=== PATIENT | female | born 1985 | race Caucasian/White ===

== ENCOUNTER 2019-06-06 15:12 | Emergency (ER) | payer OTHER ==
[2019-06-06 15:28] VITALS: TEMP 97.8; BMI 27.4
[2019-06-06 15:46] LABS: PH,URINE 7.5 (5.0-8.0); URINE APPEARANCE CLEAR; URINE BILIRUBIN NEGATIVE (NEGATIVE); URINE COLOR YELLOW; URINE GLUCOSE (UA) NEGATIVE (NEGATIVE); URINE KETONE 3+ (NEGATIVE); URINE LEUK ESTERASE NEGATIVE (NEGATIVE); URINE NITRITE NEGATIVE (NEGATIVE); URINE PROTEIN TRACE (NEGATIVE); URINE UROBILINOGEN 0.2 mg/dL (0.2-1.0)
[2019-06-06 16:18] LABS: COCAINE, UR NEGATIVE ng/ml (CUTOFF=300); METHADONE, UR NEGATIVE ng/ml (CUTOFF=300); OPIATES, URI NEGATIVE ng/ml (CUTOFF=300); PHENCYCLIDINE,URINE NEGATIVE ng/ml (CUTOFF=25); URINE AMPHETAMINES NEGATIVE ng/ml (CUTOFF=500); URINE BARBITURATES NEGATIVE ng/ml (CUTOFF=200); URINE BENZODIAZEPINES NEGATIVE ng/ml (CUTOFF=200)
--- NOTE | 2019-06-06 16:22 | PDOC ---
History of Present Illness - General Chief Complaint: Pain, Acute Stated Complaint: INTOXICATED Time Seen by Provider: 06/06/19 16:21 History Source: Patient Exam Limitations: No Limitations - History of Present Illness Initial Comments: 06/06/19 16:44 33yF w PMHx opioid/alcohol abuse, pancreatitis, gallstones, ovarian cyst presenting w nausea/vomiting, diarrhea, moderate epigastric and RUQ pain after drinking indeterminate amount of alcohol last night after abstaining for past few months. Denies fever, chest pain, SOB, cough, urinary changes. Past History - Past Medical History Allergies/Adverse Reactions: Allergies Allergy/AdvReac Type Severity Reaction Status Date / Time shellfish derived Allergy Intermediate Hives Verified 06/06/19 15:24 No Known Drug Allergies Allergy Verified 06/06/19 15:24 Home Medications: Ambulatory Orders Folic Acid - 1 mg PO DAILY 03/19/19 Escitalopram Oxalate [Lexapro -] 10 mg PO DAILY #16 tablet 04/09/19 traZODone HCL [Trazodone HCl] 50 mg PO HS #16 tablet 04/09/19 Cetirizine HCl [Zyrtec -] 10 mg PO HS #8 tablet 04/10/19 Levothyroxine [Synthroid -] 100 mcg PO DAILY #8 tablet 04/10/19 Loratadine 10 mg PO DAILY #8 tab.rapdis 04/10/19 Naltrexone Microspheres [Vivitrol] 380 mg IM MONTHLY #1 disp.syrin 05/07/19 Acamprosate Calcium [Campral -] 666 mg PO TID 06/06/19 Ondansetron [Zofran *Odt*] 4 mg SL TID #6 od.tablet 06/06/19 Anemia: No Asthma: No Cancer: Yes (pre ca of cervix, conization surgery ) Cardiac Disorders: No CVA: No COPD: No CHF: No Dementia: No Diabetes: No GI Disorders: No Disorders: No HTN: No Hypercholesterolemia: No Kidney Stones: No Liver Disease: Yes (elevated enzymes in past due to alcohol) Psychiatric Problems: Yes Seizures: No Thyroid Disease: Yes (on medication) - Surgical History Abdominal Surgery: No Appendectomy: No Cardiac Surgery: No Cholecystectomy: No Lung Surgery: No Neurologic Surgery: No Orthopedic Surgery: No - Psycho Social/Smoking Cessation Hx Smoking History: Former smoker Have you smoked in the past 12 months: No Number of Cigarettes Smoked Daily: 2 Information on smoking cessation initiated: No 'Breaking Loose' booklet given: 09/10/14 Hx Alcohol Use: Yes Drug/Substance Use Hx: No Substance Use Type: Alcohol Hx Substance Use Treatment: Yes (detox, outpatient rehab) Review of Systems - Review of Systems Constitutional: No: Chills, Fever HEENTM: No: Eye Pain, Ear Discharge Respiratory: No: Cough, Shortness of Breath Cardiac (ROS): No: Chest Pain, Palpitations, Syncope ABD/GI: Yes: Diarrhea, Nausea, Vomiting. No: Abdominal Distended, Constipated : No: Burning, Dysuria Musculoskeletal: No: Back Pain, Joint Pain Integumentary: No: Bruising, Erythema Neurological: No: Headache, Seizure Psychiatric: Yes: Anxiety, Stressors. No: Depression Endocrine: No: Intolerance to Cold, Intolerance to Heat Hematologic/Lymphatic: No: Anemia, Blood Clots *Physical Exam - Vital Signs Last Vital Signs Temp Pulse Resp BP Pulse Ox 97.8 F 65 22 H 144/87 96 06/06/19 15:24 06/06/19 15:24 06/06/19 15:24 06/06/19 15:24 06/06/19 15:24 - Physical Exam General Appearance: Yes: Nourished, Appropriately Dressed, Moderate Distress HEENT: positive: EOMI, ERVIN, Normal Voice, Hearing Grossly Normal. negative: Scleral Icterus (R), Scleral Icterus (L) Respiratory/Chest: positive: Lungs Clear, Normal Breath Sounds. negative: Chest Tender, Respiratory Distress Cardiovascular: positive: Regular Rhythm, Regular Rate, S1, S2. negative: Edema , Murmur Gastrointestinal/Abdominal: positive: Normal Bowel Sounds, Tender (mild epigastric/RUQ), Flat, Soft. negative: Organomegaly Extremity: positive: Delayed Capillary Refill Integumentary: positive: Normal Color, Dry Neurologic: positive: spring up supervisor II-XII NML intact, Fully Oriented, Alert, Normal Mood/ Affect (anxious, pacing around, asking for pain meds), Normal Response, Responsive. negative: Numbness, Confused, Disoriented ED Treatment Course - LABORATORY CBC & Chemistry Diagram: 06/06/19 17:30 06/06/19 17:30 - ADDITIONAL ORDERS Additional order review: Laboratory Results 06/06/19 06/06/1906/06/20 15:25 15:25 15:25 Urine Color Yellow Urine Appearance Clear Urine pH 7.5 Ur Specific [place] 1.021 Urine Protein Trace Urine Glucose (UA) Negative Urine Ketones 3+ H Urine Blood Negative Urine Nitrite Negative Urine Bilirubin Negative Urine Urobilinogen 0.2 Ur Leukocyte Esterase Negative Urine HCG, Qual Negative Opiates Screen Negative Methadone Screen Negative Barbiturate Screen Negative Phencyclidine Screen Negative Ur Amphetamines Screen Negative MDMA (Ecstasy) Screen Negative Benzodiazepines Screen Negative Cocaine Screen Negative U Marijuana (THC) Screen Negative Medical Decision Making - Medical Decision Making 06/06/19 16:43 CT A/P - no acute pathology EKG sinus bradycardia, TWI V1-2, HR 49, QTc 428, no ST changes WBC 15 w L shift, lactate 4.4 --- 33yF w PMHx alcohol/opioid abuse, pancreatitis, gallstones, ovarian cyst presenting w 1d nausea/vomiting, diarrhea, moderate epigastric pain after drinking alcohol d/t alcoholic gastritis Low concern for UTI (clean) vs (neg) vs ACS (no cardiac risk factors) vs illicit drug use (neg) vs pancreatitis (low lipase) vs cholecystitis (normal bili, not jaundice). Given zofran, 2L NS, tylenol, pepcid, 2 morphine DC home w zofran Discharge - Discharge Information Problems reviewed: Yes Clinical Impression/Diagnosis: Alcoholic gastritis Qualifiers: Chronicity: acute Gastritis bleeding: without bleeding Qualified Code(s): K29.20 - Alcoholic gastritis without bleeding Condition: Improved Disposition: HOME - Additional Discharge Information Prescriptions: Ondansetron [Zofran *Odt*] 4 mg SL TID #6 od.tablet - Follow up/Referral - Patient Discharge Instructions Patient Printed Discharge Instructions: DI for Alcoholic Gastritis Additional Instructions: Take the prescribed zofran if you're vomiting. Dont drink alcohol. Drink lots of water Follow up with your primary care doctor - Post Discharge Activity
[2019-06-06] MEDS ORDERED: FAMOTIDINE 20 MG/50 ML IVPB 20 MG/50 ML MG IVPB ONE ×2 (16:42→17:44)
[2019-06-06] MEDS ORDERED: SODIUM CHLORIDE 0.9% 500 ML INFUS.BAG IV ONE ×3 (16:42→19:54)
[2019-06-06] MEDS ORDERED: ONDANSETRON 4 MG/2 ML VIAL IVPUSH ONE (16:42)
[2019-06-06] MEDS ORDERED: ACETAMINOPHEN 1000 MG/100 ML VIAL (NON FORMULARY) IVPB ONE (17:15)
[2019-06-06] MEDS ORDERED: ONDANSETRON 4 MG/2 ML VIAL ONE (17:44)
[2019-06-06] MEDS ORDERED: ACETAMINOPHEN INJECTION 100 ML IVPB ONE (17:50)
[2019-06-06 18:10] LABS: BASO % 0.3 % (0-2.0); HEMATOCRIT 41.8 % (32.4-45.2); HEMOGLOBIN 13.7 GM/dL (10.7-15.3); LYMPH % 9.9 % (8-40); MCH 27.5 pg (25.7-33.7); MCHC 32.6 g/dl (32.0-36.0); MEAN CELL VOLUME 84.3 fl (80-96); MEAN PLT VOLUME 9.5 fl (7.5-11.1); MONO % 2.2 % (3.8-10.2); NEUT % 87.6 % (42.8-82.8); PLATELET COUNT 385 K/MM3 (134-434); RBC 4.96 M/mm3 (3.60-5.2); RDW 13.2 % (11.6-15.6); WHITE BLOOD COUNT 15.7 K/mm3 (4.0-10.0)
--- NOTE | 2019-06-06 18:21 | PDOC ---
Documentation entered by Jeronimo Fletcher SCRIBE, acting as scribe for Amira Jensen MD. Amira Jensen MD: This documentation has been prepared by the Justine arguello Nirvannie, SCRIBE, under my direction and personally reviewed by me in its entirety. I confirm that the documentation accurately reflects all work, treatment, procedures, and medical decision making performed by me. Attending Attestation - Resident Resident Name: EmilyValeriano - ED Attending Attestation I have performed the following: I have examined & evaluated the patient, The case was reviewed & discussed with the resident, I agree w/resident's findings & plan, Exceptions are as noted - HPI HPI: 06/06/19 17:01 The patient is a 33 year old female, with a significant past medical history of pancreatitis, gallstones, ovarian cysts, alcohol abuse, who presents to the emergency department with nausea, vomiting, diarrheam and epigastric abdominal pain. Patient notes to have abstained from alcohol for a "few months" and last night he had his first drink last night. Allergies: Shellfish - Physicial Exam PE: 06/06/19 17:59 Agree with resident exam. patient is alert and oriented x 3 and in no acute distress. Abdomen is soft, non distended without guarding or rebound. + tenderness in the RUQ and epigastrium. - Medical Decision Making 06/06/19 18:17 pt presents to the ED complaining of epigastric pain, nausea and vomiting after drinking. History of gallstones and chronic pancreatitis. Differential includes chronic pancreatitis, biliary disease, gastritis, other intraabdominal pathology. U preg is negative. Will check labs and CT abdomen, treat with pepcid and zofran and reassess.
[2019-06-06] MEDS ORDERED: morphine CARPU-JECT 4 MG/1 ML DISP.SYRIN IVPUSH ONE (18:42)
[2019-06-06 19:07] LABS: ALBUMIN 5.2 g/dl (3.4-5.0); BILIRUBIN,TOTAL 0.6 mg/dL (0.2-1); BLOOD UREA NITROGEN 8.4 mg/dL (7-18); CALCIUM 10.1 mg/dL (8.5-10.1); CREATININE 0.8 mg/dL (0.55-1.3); POTASSIUM 4.2 mmol/L (3.5-5.1); TOT PROT 9.1 g/dl (6.4-8.2)
[2019-06-06] MEDS ORDERED: MORPHINE SULFATE 2 MG/ML VIAL ONE (19:09)
--- NOTE | 2019-06-06 19:56 | PDOC ---
*Physical Exam - Vital Signs Last Vital Signs Temp Pulse Resp BP Pulse Ox 97.8 F 65 22 H 144/87 96 06/06/19 15:24 06/06/19 15:24 06/06/19 15:24 06/06/19 15:24 06/06/19 15:24 ED Treatment Course - LABORATORY CBC & Chemistry Diagram: 06/06/19 22:36 06/06/19 17:30 - ADDITIONAL ORDERS Additional order review: Laboratory Results 06/06/19 06/06/19 06/06/19 17:30 17:30 17:30 Sodium 142 Potassium 4.2 Chloride 109 H Carbon Dioxide 16 L Anion Gap 16 BUN 8.4 Creatinine 0.8 Est GFR (CKD-EPI)AfAm 111.48 Est GFR (CKD-EPI)NonAf 96.19 Random Glucose 103 Lactic Acid 4.4 H* Calcium 10.1 Total Bilirubin 0.6 AST 24 ALT 41 Alkaline Phosphatase 51 Total Protein 9.1 H Albumin 5.2 H Lipase 55 L Urine Color Urine Appearance Urine pH Ur Specific [place] Urine Protein Urine Glucose (UA) Urine Ketones Urine Blood Urine Nitrite Urine Bilirubin Urine Urobilinogen Ur Leukocyte Esterase Urine HCG, Qual Opiates Screen Methadone Screen Barbiturate Screen Phencyclidine Screen Ur Amphetamines Screen MDMA (Ecstasy) Screen Benzodiazepines Screen Cocaine Screen U Marijuana (THC) Screen 06/06/19 06/06/19 06/06/19 15:25 15:25 15:25 Sodium Potassium Chloride Carbon Dioxide Anion Gap BUN Creatinine Est GFR (CKD-EPI)AfAm Est GFR (CKD-EPI)NonAf Random Glucose Lactic Acid Calcium Total Bilirubin AST ALT Alkaline Phosphatase Total Protein Albumin Lipase Urine Color Yellow Urine Appearance Clear Urine pH 7.5 Ur Specific [place] 1.021 Urine Protein Trace Urine Glucose (UA) Negative Urine Ketones 3+ H Urine Blood Negative Urine Nitrite Negative Urine Bilirubin Negative Urine Urobilinogen 0.2 Ur Leukocyte Esterase Negative Urine HCG, Qual Negative Opiates Screen Negative Methadone Screen Negative Barbiturate Screen Negative Phencyclidine Screen Negative Ur Amphetamines Screen Negative MDMA (Ecstasy) Screen Negative Benzodiazepines Screen Negative Cocaine Screen Negative U Marijuana (THC) Screen Negative 06/06/19 17:30 RBC 4.96 MCV 84.3 MCHC 32.6 RDW 13.2 D MPV 9.5 Neutrophils % 87.6 H D Lymphocytes % 9.9 D Monocytes % 2.2 L Eosinophils % 0.0 D Basophils % 0.3 - Medications Given in the ED: ED Medications Discontinued Medications Generic Name Dose Route Start Last Admin Trade Name Nicho PRN Reason Stop Dose Admin Acetaminophen 1,000 mg 06/06/19 17:15 06/06/19 17:54 Ofirmev Injection - IVPB 06/06/19 17:16 1,000 mg ONCE ONE Administration Famotidine/Sodium Chloride 20 mg in 50 mls @ 100 mls/hr 06/06/19 16:42 17:54 Pepcid 20 Mg Premixed Ivpb - IVPB 06/06/19 17:11 100 mls/hr ONCE ONE Administration Morphine Sulfate 2 mg 06/06/19 18:42 06/06/19 19:12 Morphine Injection - IVPUSH 06/06/19 18:43 2 mg ONCE ONE Administration Ondansetron HCl 4 mg 06/06/19 16:42 06/06/19 17:54 Zofran Injection IVPUSH 06/06/19 16:43 4 mg NOW ONE Administration Sodium Chloride 1,000 ml 06/06/19 16:42 06/06/19 17:53 Normal Saline - IV 06/06/19 16:43 1,000 ml ONCE ONE Administration Medical Decision Making - Medical Decision Making 06/06/19 19:54 Pt signed out to me. She has elevated lactate and WBC elevation and 3+ ketones in the urine. She will be hydrated and we will repeeat the labs. She received 1L so far. W will hydrate with 2 more Liters and then she may be stable for discharge vs admission to [facility]. 06/06/19 20:01 Pt apparently abuses opiates; normal UTOX; also alcohol use. We will repeat Comp, lactate and alcohol level after a 2nd L and then administer a 3rd L 06/06/19 20:05 06/06/19 22:38 Pt's repeat CBC was cancelled; ot's repeat lactate is pending 06/06/19 22:52 Repeat lactic acid is 1.3 06/06/19 22:56 SHe will likely be discharged home 06/06/19 23:04 CBC improved. Discharge - Discharge Information Problems reviewed: Yes Clinical Impression/Diagnosis: Alcoholic gastritis Qualifiers: Chronicity: acute Gastritis bleeding: without bleeding Qualified Code(s): K29.20 - Alcoholic gastritis without bleeding Condition: Improved Disposition: HOME - Additional Discharge Information Prescriptions: Ondansetron [Zofran *Odt*] 4 mg SL TID #6 od.tablet - Follow up/Referral - Patient Discharge Instructions Patient Printed Discharge Instructions: DI for Alcoholic Gastritis Additional Instructions: Take the prescribed zofran if you're vomiting. Dont drink alcohol. Drink lots of water Follow up with your primary care doctor - Post Discharge Activity
[2019-06-06 22:54] LABS: BASO % 0.6 % (0-2.0); HEMOGLOBIN 11.5 GM/dL (10.7-15.3); LYMPH % 12.1 % (8-40); MCH 27.8 pg (25.7-33.7); MCHC 32.8 g/dl (32.0-36.0); MEAN PLT VOLUME 9.2 fl (7.5-11.1); MONO % 3.6 % (3.8-10.2); NEUT % 83.7 % (42.8-82.8); PLATELET COUNT 291 K/MM3 (134-434); RBC 4.12 M/mm3 (3.60-5.2); WHITE BLOOD COUNT 11.9 K/mm3 (4.0-10.0)
[2019-06-06 23:42] VITALS: BP 135/69; PULSE 86
--- NOTE | 2019-06-07 17:08 | EKG ---
Test Reason : Blood Pressure : / mmHG Vent. Rate : 049 BPM Atrial Rate : 049 BPM P-R Int : 134 ms QRS Dur : 092 ms QT Int : 474 ms P-R-T Axes : 042 081 056 degrees QTc Int : 428 ms SINUS BRADYCARDIA OTHERWISE NORMAL ECG NO PREVIOUS ECGS AVAILABLE Confirmed by MAITE REED MD ([id number]) on 06/07/2019 5:08:10 PM Referred By: Confirmed By:MAITE REED MD
== END 2019-06-06 23:42 | disposition home or self-care (01) ==
LOC: JER 15:12
PROC: 3E033GC Introduction of Other Therapeutic Substance into Peripheral Vein, Percutaneous Approach (ICD-10-PCS; principal; 2019-06-06)
PROC: 3E033GC Introduction of Other Therapeutic Substance into Peripheral Vein, Percutaneous Approach (ICD-10-PCS; 2019-06-06)
PROC: 3E033NZ Introduction of Analgesics, Hypnotics, Sedatives into Peripheral Vein, Percutaneous Approach (ICD-10-PCS; 2019-06-06)
PROC: 3E033NZ Introduction of Analgesics, Hypnotics, Sedatives into Peripheral Vein, Percutaneous Approach (ICD-10-PCS; 2019-06-06)
DX: K29.20 Alcoholic gastritis without bleeding (principal); E03.9 Hypothyroidism, unspecified; Z87.19 Personal history of other diseases of the digestive system
CPT/HCPCS: 36415; 74177-TC; 80053; 80307; 81003; 83605; 83690; 84703; 85025; 93005; 93010; 99285-25; J0131; Q9967

== ENCOUNTER 2021-08-19 12:54 | Inpatient (IN) | payer BC, OTHER ==
[2021-08-19 14:14] VITALS: BMI 29.9
[2021-08-19] MEDS ORDERED: ACETAMINOPHEN 325 MG TABLET (FP) PO PRN (14:54)
[2021-08-19] MEDS ORDERED: WITCH HAZEL 50% (TUCKS) 40 PAD/JAR PAD TP PRN (14:54)
[2021-08-19] MEDS ORDERED: BENZOCAINE 28 GM HEMORRHOIDAL OINTMENT TP PRN (14:54)
[2021-08-19] MEDS ORDERED: oxyCODONE HCL 5 MG TABLET PO PRN (14:54)
[2021-08-19] MEDS ORDERED: BISACODYL 10 MG SUPP.RECT RC PRN (14:54)
[2021-08-19] MEDS ORDERED: METHYLERGONOVINE MALEATE 0.2 MG/1 ML AMP IM PRN (14:54)
[2021-08-19] MEDS ORDERED: BENZOCAINE 20% 57 GM BOTTLE TP PRN (14:54)
[2021-08-19] MEDS ORDERED: AMPICILLIN - 2 GM in SODIUM CHLORIDE 100 ML IVPB ONE (15:00)
[2021-08-19] MEDS ORDERED: OXYTOCIN 20 UNITS in 0.9% NS 20 UNIT/1,000 ML INFUS.BAG IV SCH (15:00)
[2021-08-19] MEDS ORDERED: ONDANSETRON 4 MG/2 ML VIAL ONE (15:18)
[2021-08-19] MEDS ORDERED: OXYTOCIN 20 UNITS in 0.9% NS 20 UNIT/1,000 ML INFUS.BAG IV ONE (15:25)
[2021-08-19] MEDS: IBUPROFEN 600 MG TABLET (FP) PO PRN ×2 (15:30→22:25)
[2021-08-19] MEDS ORDERED: ONDANSETRON 4 MG/2 ML VIAL IVPB PRN (15:30)
[2021-08-19] MEDS ORDERED: IBUPROFEN 600 MG TABLET (FP) PO ONE (15:31)
[2021-08-19 16:42] LABS: HEMATOCRIT 37.6 % (32.4-45.2); HEMOGLOBIN 12.1 GM/dL (10.7-15.3); MCH 26.3 pg (25.7-33.7); MCHC 32.1 g/dl (32.0-36.0); MEAN CELL VOLUME 81.8 fl (80-96); MEAN PLT VOLUME 8.7 fl (7.5-11.1); PLATELET COUNT 329 10^3/uL (134-434); RBC 4.59 M/mm3 (3.60-5.2); RDW 13.5 % (11.6-15.6); WHITE BLOOD COUNT 20.5 K/mm3 (4.0-10.0)
[2021-08-19 16:45] LABS: INR 1.07 (0.83-1.09); PROTHROMBIN TIME (PATIENT) 12.3 SEC (9.7-13.0)
[2021-08-19 16:48] LABS: ACTIVATED PTT 29.5 SECONDS (25.2-36.5)
[2021-08-19 16:56] LABS: CALCIUM 8.7 mg/dL (8.5-10.1)
[2021-08-19 16:57] LABS: BLOOD UREA NITROGEN 5.5 mg/dL (7-18)
[2021-08-19 17:00] LABS: CREATININE 0.5 mg/dL (0.55-1.3)
[2021-08-19 17:29] LABS: ANISOCYTOSIS 1+; MACROCYTOSIS 0; PLATELET ESTIMATE NORMAL; TEAR DROP CELLS 1+
[2021-08-19 18:09] LABS: METHADONE, UR NEGATIVE (NEGATIVE); OPIATES, URI NEGATIVE (NEGATIVE); PHENCYCLIDINE,URINE NEGATIVE (NEGATIVE); URINE BARBITURATES NEGATIVE (NEGATIVE); URINE BENZODIAZEPINES NEGATIVE (NEGATIVE)
[2021-08-19 18:10] LABS: COCAINE, UR NEGATIVE (NEGATIVE)
[2021-08-19 18:15] LABS: URINE AMPHETAMINES NEGATIVE (NEGATIVE)
[2021-08-20] MEDS: IBUPROFEN 600 MG TABLET (FP) PO PRN ×4 (05:47→21:01)
[2021-08-20] MEDS ORDERED: LEVOTHYROXINE NA 100 MCG TABLET (FP) PO SCH (07:00)
[2021-08-20 07:17] LABS: BASO % 0.4 % (0-2.0); EOS % 0.8 % (0-4.5); HEMATOCRIT 32.7 % (32.4-45.2); HEMOGLOBIN 10.9 GM/dL (10.7-15.3); MCH 27.3 pg (25.7-33.7); MCHC 33.3 g/dl (32.0-36.0); MEAN CELL VOLUME 81.7 fl (80-96); MEAN PLT VOLUME 8.5 fl (7.5-11.1); MONO % 7.7 % (3.8-10.2); NEUT % 73.1 % (42.8-82.8); PLATELET COUNT 326 10^3/uL (134-434); RDW 13.3 % (11.6-15.6); WHITE BLOOD COUNT 15.4 K/mm3 (4.0-10.0)
[2021-08-20] MEDS: LORATADINE 10 MG TABLET PO SCH (09:54)
[2021-08-20] MEDS: ESCITALOPRAM OXALATE 10 MG TABLET PO SCH (09:54)
[2021-08-20] MEDS ORDERED: SENNOSIDES/DOCUSATE COMBO (SENNA PLUS) TABLET (UD) PO PRN (22:00)
[2021-08-21] MEDS ORDERED: LEVOTHYROXINE NA 150 MCG TABLET PO SCH (07:00)
[2021-08-21] MEDS: ESCITALOPRAM OXALATE 10 MG TABLET PO SCH (09:25)
[2021-08-21] MEDS: LORATADINE 10 MG TABLET PO SCH (09:25)
[2021-08-21] MEDS: IBUPROFEN 600 MG TABLET (FP) PO PRN (10:18)
[2021-08-21] MEDS ORDERED: HYDROCORTISONE 0.5% TOPICAL OINTMENT TUBE TP PRN (11:34)
[2021-08-21] MEDS ORDERED: diphenhydrAMINE HCL 25 MG CAPSULE (FP) PO PRN (11:36)
[2021-08-21] MEDS ORDERED: HYDROCORTISONE 0.5% TOPICAL CREAM 30 GM TUBE TP PRN (11:58)
[2021-08-21 13:51] VITALS: BP 103/62; PULSE 75; TEMP 98.5
== END 2021-08-21 14:44 | disposition home or self-care (01) | DRG 807 ==
LOC: JLDR 12:54 → EDBD 12:54 → J3W 16:54
PROVIDERS: ADMIT Specialist; ATTEND Specialist
PROC: 10E0XZZ Delivery of Products of Conception, External Approach (ICD-10-PCS; principal; 2021-08-19)
PROC: 0W8NXZZ Division of Female Perineum, External Approach (ICD-10-PCS; 2021-08-19)
DX: O42.02 Full-term premature rupture of membranes, onset of labor within 24 hours of rupture (principal); Z37.0 Single live birth; Z3A.37 37 weeks gestation of pregnancy
CPT/HCPCS: 36415; 59409; 80048; 80307; 85025; 85610; 85730; 86780; 86850; 86900; 86901; C9803-CS; U0003; U0005

== ENCOUNTER 2021-08-25 21:35 | Emergency (ER) | payer BC ==
[2021-08-25 21:58] VITALS: BP 110/64; PULSE 87; TEMP 98; BMI 28.4
== END 2021-08-25 22:49 | disposition home or self-care (01) ==
LOC: JER 21:35
DX: Z11.52 Encounter for screening for COVID-19 (principal)
CPT/HCPCS: 99283-25; C9803-CS; U0003; U0005